=== PATIENT | female | born 1945 ===

== ENCOUNTER 2021-02-25 00:20 | Inpatient (IN) ==
[2021-02-25] MEDS ORDERED: ONDANSETRON 4 MG/2 ML VIAL IV PRN (02:41)
[2021-02-25] MEDS ORDERED: MORPHINE 2 MG/1 ML SYRINGE IV PRN (02:41)
[2021-02-25] MEDS ORDERED: GLUCAGON 1 MG VIAL IM PRN (02:41)
[2021-02-25] MEDS ORDERED: DEXTROSE 50% 25 GM/50 ML VIAL IV PRN (02:41)
[2021-02-25] MEDS ORDERED: ENOXAPARIN 40 MG/0.4 ML SYRINGE SUBCUT SCH (03:00)
[2021-02-25 03:44] LABS: Basophils % 0.2 % (0.0-0.8); Hemoglobin 14.7 GM/DL (12.0-16.0); Immature Granulocytes % 0.5 %; Immature Granulocytes Absolute 0.02 #; Lymphocytes # 0.9 10*3/uL (1.4-4.0); Lymphocytes % 22.2 % (21.3-54.2); Mean Corpuscular HGB Conc 32.7 GM/DL (32-36); Mean Corpuscular Volume 93.8 FL (87-102); Mean Platelet Volume 11.3 FL (9.6-12.0); Monocytes % 15.1 % (1.7-12.7); Platelet Count 169 T/CUMM (130-400); Red Cell Distribution Width 13.5 % (9.3-17.3); White Blood Count 4.2 T/CUMM (4-12)
[2021-02-25 04:11] LABS: Albumin 3.2 G/DL (3.4-5.0); Bilirubin,Total 0.5 MG/DL (0.20-1.00); Calcium 8.6 MG/DL (8.5-10.1); Osmolality,Calculated 293.1 MOS/KG (273-304); Potassium 4.1 MMOL/L (3.5-5.1); Total Protein 6.9 G/DL (6.4-8.2)
[2021-02-25 04:58] LABS: Ferritin 757.4 ng/mL (8-252)
[2021-02-25] MEDS ORDERED: NITROGLYCERIN SL 0.4 MG TABLET SL PRN (08:16)
[2021-02-25] MEDS: DEXAMETHASONE 4 MG/1 ML VIAL IV SCH (08:46)
[2021-02-25] MEDS: ROSUVASTATIN 20 MG TABLET PO SCH (08:46)
[2021-02-25] MEDS: CETIRIZINE 10 MG TABLET PO SCH (08:47)
[2021-02-25] MEDS: ASCORBIC ACID 500 MG TABLET PO SCH ×2 (08:47→21:08)
[2021-02-25] MEDS: CHOLECALCIFEROL 1,000 UNIT TABLET PO SCH (08:47)
[2021-02-25] MEDS: FAMOTIDINE 20 MG TABLET PO SCH ×2 (08:47→21:08)
[2021-02-25] MEDS: METOPROLOL TARTRATE 25 MG TABLET PO SCH ×2 (08:47→21:08)
[2021-02-25] MEDS: ZINC GLUCONATE 50 MG TABLET PO SCH (08:47)
[2021-02-25] MEDS ORDERED: PANTOPRAZOLE 40 MG TABLET PO SCH (09:00)
[2021-02-25 10:25] LABS: CKMB % 1.1 %
[2021-02-25] MEDS: ENOXAPARIN 60 MG/0.6 ML SYRINGE SUBCUT SCH (15:20)
[2021-02-26] MEDS: ENOXAPARIN 60 MG/0.6 ML SYRINGE SUBCUT SCH ×2 (02:49→13:45)
[2021-02-26 04:29] LABS: Hematocrit 44.5 VOL% (35.7-47.0); Hemoglobin 14.7 GM/DL (12.0-16.0); Immature Granulocytes % 0.6 %; Immature Granulocytes Absolute 0.02 #; Lymphocytes # 0.5 10*3/uL (1.4-4.0); Mean Corpuscular Volume 92.5 FL (87-102); Mean Platelet Volume 11.1 FL (9.6-12.0); Monocytes % 19.3 % (1.7-12.7); Neutrophils % 63.1 % (38.7-73.9); Platelet Count 192 T/CUMM (130-400); Red Blood Count 4.81 MC/CUMM (3.8-5.5); Red Cell Distribution Width 13.5 % (9.3-17.3); White Blood Count 3.1 T/CUMM (4-12)
[2021-02-26 04:54] LABS: Calcium 8.6 MG/DL (8.5-10.1); Osmolality,Calculated 312.6 MOS/KG (273-304)
[2021-02-26 04:55] LABS: Band Neutrophils 1 % (0-10); Lymphocytes 13 % (20-55); Platelet Estimate Adequate; Segmented Neutrophils 67 % (50-85); Total Cells Counted 100
[2021-02-26] MEDS: ROSUVASTATIN 20 MG TABLET PO SCH (08:11)
[2021-02-26] MEDS: FAMOTIDINE 20 MG TABLET PO SCH (08:11)
[2021-02-26] MEDS: ASCORBIC ACID 500 MG TABLET PO SCH ×2 (08:12→20:44)
[2021-02-26] MEDS: ZINC GLUCONATE 50 MG TABLET PO SCH (08:12)
[2021-02-26] MEDS: CHOLECALCIFEROL 1,000 UNIT TABLET PO SCH (08:12)
[2021-02-26] MEDS: CETIRIZINE 10 MG TABLET PO SCH (08:12)
[2021-02-26] MEDS: AZITHROMYCIN 250 MG TABLET PO SCH (08:12)
[2021-02-26] MEDS: DEXAMETHASONE 4 MG/1 ML VIAL IV SCH (08:12)
[2021-02-26] MEDS: METOPROLOL TARTRATE 25 MG TABLET PO SCH (09:30)
[2021-02-26] MEDS: SODIUM CHLOR 0.45% KCL 20 MEQ 20 MEQ/1,000 ML BAG IV SCH (14:18)
[2021-02-26] MEDS: FLECAINIDE 100 MG TABLET PO SCH ×2 (15:04→20:44)
[2021-02-26] MEDS ORDERED: OLANZapine 10 MG VIAL IM ONE (19:17)
[2021-02-26] MEDS: MELATONIN 3 MG TABLET PO PRN (20:44)
[2021-02-27] MEDS: SODIUM CHLOR 0.45% KCL 20 MEQ 20 MEQ/1,000 ML BAG IV SCH (02:44)
[2021-02-27 04:40] LABS: Basophils % 0.1 % (0.0-0.8); Hematocrit 44.3 VOL% (35.7-47.0); Hemoglobin 14.5 GM/DL (12.0-16.0); Immature Granulocytes % 0.9 %; Immature Granulocytes Absolute 0.08 #; Lymphocytes # 0.7 10*3/uL (1.4-4.0); Lymphocytes % 7.4 % (21.3-54.2); Mean Corpuscular HGB Conc 32.7 GM/DL (32-36); Mean Corpuscular Volume 93.1 FL (87-102); Mean Platelet Volume 10.9 FL (9.6-12.0); Neutrophils % 78.6 % (38.7-73.9); Platelet Count 265 T/CUMM (130-400); Red Blood Count 4.76 MC/CUMM (3.8-5.5); Red Cell Distribution Width 13.5 % (9.3-17.3); White Blood Count 9.1 T/CUMM (4-12)
[2021-02-27 05:04] LABS: Calcium 8.5 MG/DL (8.5-10.1); Osmolality,Calculated 317.4 MOS/KG (273-304); Potassium 4.6 MMOL/L (3.5-5.1)
[2021-02-27] MEDS: LEVOTHYROXINE 100 MCG TABLET PO SCH (07:30)
[2021-02-27] MEDS: ASCORBIC ACID 500 MG TABLET PO SCH ×2 (09:42→20:58)
[2021-02-27] MEDS: FAMOTIDINE 20 MG TABLET PO SCH (09:42)
[2021-02-27] MEDS: CLOPIDOGREL 75 MG TABLET PO SCH (09:42)
[2021-02-27] MEDS: ROSUVASTATIN 20 MG TABLET PO SCH (09:42)
[2021-02-27] MEDS: FLECAINIDE 100 MG TABLET PO SCH ×2 (09:42→20:58)
[2021-02-27] MEDS: ZINC GLUCONATE 50 MG TABLET PO SCH (09:42)
[2021-02-27] MEDS: DEXAMETHASONE 4 MG/1 ML VIAL IV SCH (09:42)
[2021-02-27] MEDS: CALCIUM (CARBONATE) 500 MG TABLET PO SCH (09:42)
[2021-02-27] MEDS: METOPROLOL SUCCINATE XL 50 MG TABLET PO SCH (09:42)
[2021-02-27] MEDS: CHOLECALCIFEROL 5,000 UNIT TABLET PO SCH (09:42)
[2021-02-27] MEDS: FOLIC ACID 1 MG TABLET PO SCH (09:42)
[2021-02-27] MEDS: AZITHROMYCIN 250 MG TABLET PO SCH (09:42)
[2021-02-27] MEDS: CETIRIZINE 10 MG TABLET PO SCH (09:42)
[2021-02-27] MEDS: ENOXAPARIN 60 MG/0.6 ML SYRINGE SUBCUT SCH (13:01)
[2021-02-27] MEDS: DEXTROSE 5% 1,000 ML IV SCH (14:57)
[2021-02-28] MEDS: DEXTROSE 5% 1,000 ML IV SCH ×2 (04:15→14:27)
[2021-02-28 07:35] LABS: Basophils % 0.1 % (0.0-0.8); Hematocrit 46.9 VOL% (35.7-47.0); Immature Granulocytes % 0.6 %; Immature Granulocytes Absolute 0.05 #; Lymphocytes # 0.5 10*3/uL (1.4-4.0); Lymphocytes % 5.4 % (21.3-54.2); Mean Corpuscular Volume 96.5 FL (87-102); Mean Platelet Volume 10.7 FL (9.6-12.0); Monocytes % 13.8 % (1.7-12.7); Neutrophils % 80.1 % (38.7-73.9); Platelet Count 272 T/CUMM (130-400); Red Blood Count 4.86 MC/CUMM (3.8-5.5); Red Cell Distribution Width 13.5 % (9.3-17.3); White Blood Count 8.5 T/CUMM (4-12)
[2021-02-28 08:13] LABS: Calcium 8.6 MG/DL (8.5-10.1); Osmolality,Calculated 306.1 MOS/KG (273-304); Potassium 4.6 MMOL/L (3.5-5.1)
[2021-02-28] MEDS: LEVOTHYROXINE 100 MCG TABLET PO SCH (08:46)
[2021-02-28] MEDS: ROSUVASTATIN 20 MG TABLET PO SCH (08:47)
[2021-02-28] MEDS: CALCIUM (CARBONATE) 500 MG TABLET PO SCH (08:47)
[2021-02-28] MEDS: CLOPIDOGREL 75 MG TABLET PO SCH (08:47)
[2021-02-28] MEDS: DEXAMETHASONE 4 MG/1 ML VIAL IV SCH (08:47)
[2021-02-28] MEDS: FAMOTIDINE 20 MG TABLET PO SCH (08:47)
[2021-02-28] MEDS: FOLIC ACID 1 MG TABLET PO SCH (08:47)
[2021-02-28] MEDS: METOPROLOL SUCCINATE XL 50 MG TABLET PO SCH (08:48)
[2021-02-28] MEDS: ZINC GLUCONATE 50 MG TABLET PO SCH (08:48)
[2021-02-28] MEDS: FLECAINIDE 100 MG TABLET PO SCH ×2 (08:48→23:17)
[2021-02-28] MEDS: CHOLECALCIFEROL 5,000 UNIT TABLET PO SCH (08:48)
[2021-02-28] MEDS: AZITHROMYCIN 250 MG TABLET PO SCH (08:48)
[2021-02-28] MEDS: CETIRIZINE 10 MG TABLET PO SCH (08:48)
[2021-02-28] MEDS: ASCORBIC ACID 500 MG TABLET PO SCH ×2 (08:48→23:18)
[2021-02-28] MEDS: ENOXAPARIN 60 MG/0.6 ML SYRINGE SUBCUT SCH (14:28)
[2021-02-28] MEDS ORDERED: hydrOXYzine HCL 10 MG TABLET NG PRN (17:48)
[2021-02-28] MEDS ORDERED: LORazepam 2 MG/1 ML VIAL IV ONE (18:01)
[2021-02-28] MEDS ORDERED: LORazepam 2 MG/1 ML VIAL ONE (18:30)
[2021-02-28] MEDS: METOPROLOL TARTRATE 5 MG/5 ML VIAL IV PRN (19:15)
[2021-03-01] MEDS: DEXTROSE 5% 1,000 ML IV SCH ×3 (07:11→21:32)
[2021-03-01] MEDS: DEXAMETHASONE 4 MG/1 ML VIAL IV SCH (08:41)
[2021-03-01] MEDS: LEVOTHYROXINE 100 MCG TABLET PO SCH (10:00)
[2021-03-01] MEDS: ROSUVASTATIN 20 MG TABLET PO SCH (12:05)
[2021-03-01] MEDS: METOPROLOL SUCCINATE XL 50 MG TABLET PO SCH (12:06)
[2021-03-01] MEDS: FOLIC ACID 1 MG TABLET PO SCH (12:06)
[2021-03-01] MEDS: FLECAINIDE 100 MG TABLET PO SCH ×2 (12:06→21:30)
[2021-03-01] MEDS: FAMOTIDINE 20 MG TABLET PO SCH (12:06)
[2021-03-01] MEDS: CALCIUM (CARBONATE) 500 MG TABLET PO SCH (12:06)
[2021-03-01] MEDS: CLOPIDOGREL 75 MG TABLET PO SCH (12:06)
[2021-03-01] MEDS: AZITHROMYCIN 250 MG TABLET PO SCH (12:07)
[2021-03-01] MEDS: CETIRIZINE 10 MG TABLET PO SCH (12:07)
[2021-03-01] MEDS: ASCORBIC ACID 500 MG TABLET PO SCH ×2 (12:07→21:30)
[2021-03-01] MEDS: ZINC GLUCONATE 50 MG TABLET PO SCH (12:07)
[2021-03-01] MEDS: CHOLECALCIFEROL 5,000 UNIT TABLET PO SCH (12:07)
[2021-03-01 13:45] LABS: ABG Base Excess -4.1 MMOL/L (-2.5-2.5); ABG HCO3 20.9 MMOL/L (20-26); ABG Oxygen Saturation 92.5 % (95-100); ABG PCO2 22.4 MM HG (35-48); ABG PH 7.491 (7.35-7.45); ABG PO2 61.2 MM HG (80-95); ABG TCO2 14.4 MMOL/L (23-27)
[2021-03-01 14:34] LABS: Potassium 5.7 MMOL/L (3.5-5.1)
[2021-03-01 14:37] LABS: Osmolality,Calculated 280.1 MOS/KG (273-304)
[2021-03-01 15:53] LABS: Basophils % 0.1 % (0.0-0.8); Hematocrit 47.6 VOL% (35.7-47.0); Hemoglobin 16.1 GM/DL (12.0-16.0); Immature Granulocytes % 0.8 %; Immature Granulocytes Absolute 0.12 #; Lymphocytes # 0.4 10*3/uL (1.4-4.0); Lymphocytes % 2.7 % (21.3-54.2); Mean Corpuscular HGB Conc 33.8 GM/DL (32-36); Mean Corpuscular Volume 90.5 FL (87-102); Mean Platelet Volume 10.6 FL (9.6-12.0); Neutrophils % 86.4 % (38.7-73.9); Platelet Count 309 T/CUMM (130-400); Red Blood Count 5.26 MC/CUMM (3.8-5.5); Red Cell Distribution Width 13.3 % (9.3-17.3); White Blood Count 14.8 T/CUMM (4-12)
[2021-03-01] MEDS: ENOXAPARIN 60 MG/0.6 ML SYRINGE SUBCUT SCH (16:10)
[2021-03-01] MEDS ORDERED: PIPERACILLIN/TAZOBACTAM 3,375 MG in SODIUM CHLORIDE 0.9% 100 ML IV ONE (16:56)
[2021-03-01] MEDS ORDERED: SODIUM ZIRCONIUM CYCLOSILICATE 10 GM PACK PO ONE (16:56)
[2021-03-02 06:11] LABS: Basophils % 0.2 % (0.0-0.8); Hematocrit 43.3 VOL% (35.7-47.0); Immature Granulocytes % 0.6 %; Immature Granulocytes Absolute 0.07 #; Lymphocytes # 0.6 10*3/uL (1.4-4.0); Lymphocytes % 5.1 % (21.3-54.2); Mean Corpuscular HGB Conc 34.6 GM/DL (32-36); Mean Corpuscular Volume 89.5 FL (87-102); Mean Platelet Volume 11.3 FL (9.6-12.0); Monocytes % 16.6 % (1.7-12.7); Neutrophils % 77.5 % (38.7-73.9); Platelet Count 291 T/CUMM (130-400); Red Blood Count 4.84 MC/CUMM (3.8-5.5); Red Cell Distribution Width 13.1 % (9.3-17.3); White Blood Count 11.8 T/CUMM (4-12)
[2021-03-02 06:27] LABS: Calcium 8.7 MG/DL (8.5-10.1); Osmolality,Calculated 293.8 MOS/KG (273-304)
[2021-03-02 06:58] LABS: Band Neutrophils 2 % (0-10); Lymphocytes 4 % (20-55); Platelet Estimate Normal; Segmented Neutrophils 75 % (50-85); Total Cells Counted 100
[2021-03-02 06:59] LABS: Anisocytosis 1+
[2021-03-02] MEDS: DEXAMETHASONE 4 MG/1 ML VIAL IV SCH (11:28)
[2021-03-02] MEDS ORDERED: QUEtiapine 25 MG TABLET PO ONE (11:45)
[2021-03-02] MEDS: METOPROLOL TARTRATE 5 MG/5 ML VIAL IV PRN (11:48)
[2021-03-02] MEDS: FLECAINIDE 100 MG TABLET PO SCH ×2 (13:31→21:30)
[2021-03-02] MEDS: CLOPIDOGREL 75 MG TABLET PO SCH (13:31)
[2021-03-02] MEDS: FAMOTIDINE 20 MG TABLET PO SCH (13:31)
[2021-03-02] MEDS: ZINC GLUCONATE 50 MG TABLET PO SCH (13:31)
[2021-03-02] MEDS: ACETAMINOPHEN 325 MG TABLET PO PRN (13:32)
[2021-03-02] MEDS: ROSUVASTATIN 20 MG TABLET PO SCH (13:33)
[2021-03-02] MEDS: ASCORBIC ACID 500 MG TABLET PO SCH ×2 (13:33→21:30)
[2021-03-02] MEDS: CHOLECALCIFEROL 5,000 UNIT TABLET PO SCH (13:33)
[2021-03-02] MEDS: CALCIUM (CARBONATE) 500 MG TABLET PO SCH (13:33)
[2021-03-02] MEDS: METOPROLOL SUCCINATE XL 50 MG TABLET PO SCH (13:33)
[2021-03-02] MEDS: FOLIC ACID 1 MG TABLET PO SCH (13:33)
[2021-03-02] MEDS: CETIRIZINE 10 MG TABLET PO SCH (13:34)
[2021-03-02] MEDS: LEVOTHYROXINE 100 MCG TABLET PO SCH (13:34)
[2021-03-02] MEDS: ENOXAPARIN 60 MG/0.6 ML SYRINGE SUBCUT SCH (13:42)
[2021-03-02] MEDS: DEXTROSE 5% 1,000 ML IV SCH (21:59)
[2021-03-03 00:20] LABS: ABG Base Excess -4.4 MMOL/L (-2.5-2.5); ABG HCO3 18.7 MMOL/L (20-26); ABG Oxygen Saturation 93.7 % (95-100); ABG PCO2 29.4 MM HG (35-48); ABG PH 7.421 (7.35-7.45); ABG PO2 67.3 MM HG (80-95); ABG TCO2 19.6 MMOL/L (23-27)
[2021-03-03 04:30] LABS: Basophils % 0.2 % (0.0-0.8); Hemoglobin 14.1 GM/DL (12.0-16.0); Immature Granulocytes % 0.8 %; Lymphocytes # 0.5 10*3/uL (1.4-4.0); Lymphocytes % 3.9 % (21.3-54.2); Mean Corpuscular HGB Conc 32.8 GM/DL (32-36); Mean Corpuscular Volume 91.9 FL (87-102); Mean Platelet Volume 10.9 FL (9.6-12.0); Monocytes % 14.2 % (1.7-12.7); Neutrophils % 80.9 % (38.7-73.9); Platelet Count 285 T/CUMM (130-400); Red Blood Count 4.68 MC/CUMM (3.8-5.5); Red Cell Distribution Width 13.3 % (9.3-17.3); White Blood Count 12.8 T/CUMM (4-12)
[2021-03-03 05:04] LABS: Calcium 8.5 MG/DL (8.5-10.1); Osmolality,Calculated 298.7 MOS/KG (273-304); Potassium 3.8 MMOL/L (3.5-5.1)
[2021-03-03 05:08] LABS: Hypochromasia Slight; Lymphocytes 3 % (20-55); Microcytosis 1+; Ovalocytes Slight; Segmented Neutrophils 82 % (50-85)
[2021-03-03 05:09] LABS: Platelet Estimate Normal; Total Cells Counted 100
[2021-03-03 05:56] LABS: ABG Base Excess -2.9 MMOL/L (-2.5-2.5); ABG HCO3 21.9 MMOL/L (20-26); ABG Oxygen Saturation 92.2 % (95-100); ABG PCO2 27.1 MM HG (35-48); ABG PH 7.461 (7.35-7.45); ABG PO2 60.3 MM HG (80-95); ABG TCO2 16.4 MMOL/L (23-27)
[2021-03-03] MEDS: CALCIUM (CARBONATE) 500 MG TABLET PO SCH (08:07)
[2021-03-03] MEDS: ZINC GLUCONATE 50 MG TABLET PO SCH (08:07)
[2021-03-03] MEDS: FLECAINIDE 100 MG TABLET PO SCH ×2 (08:08→20:26)
[2021-03-03] MEDS: CHOLECALCIFEROL 5,000 UNIT TABLET PO SCH (08:08)
[2021-03-03] MEDS: FOLIC ACID 1 MG TABLET PO SCH (08:08)
[2021-03-03] MEDS: ASCORBIC ACID 500 MG TABLET PO SCH ×2 (08:08→20:26)
[2021-03-03] MEDS: METOPROLOL SUCCINATE XL 50 MG TABLET PO SCH (08:08)
[2021-03-03] MEDS: FAMOTIDINE 20 MG TABLET PO SCH (08:08)
[2021-03-03] MEDS: CLOPIDOGREL 75 MG TABLET PO SCH (08:08)
[2021-03-03] MEDS: LEVOTHYROXINE 100 MCG TABLET PO SCH (08:08)
[2021-03-03] MEDS: DEXAMETHASONE 4 MG/1 ML VIAL IV SCH (08:09)
[2021-03-03] MEDS: ROSUVASTATIN 20 MG TABLET PO SCH (08:12)
[2021-03-03] MEDS ORDERED: TUBERCULIN SKIN TEST 0.1 ML SYRINGE INTRADERM ONE (08:20)
[2021-03-03] MEDS: ENOXAPARIN 60 MG/0.6 ML SYRINGE SUBCUT SCH (12:42)
[2021-03-03] MEDS: cefTRIAXone 1,000 MG VIAL IM SCH (14:04)
[2021-03-03] MEDS: SODIUM CHLORIDE 0.9% 1,000 ML IV SCH (14:04)
[2021-03-03] MEDS ORDERED: LORazepam 2 MG/1 ML VIAL IV ONE (14:35)
[2021-03-03] MEDS ORDERED: REMDESIVIR 200 MG in SODIUM CHLORIDE 0.9% 210 ML IV ONE (17:00)
[2021-03-03] MEDS: DEXTROSE 5% 1,000 ML IV SCH (20:28)
[2021-03-04 03:49] LABS: ABG Base Excess -2.1 MMOL/L (-2.5-2.5); ABG HCO3 22.6 MMOL/L (20-26); ABG Oxygen Saturation 97.1 % (95-100); ABG PH 7.475 (7.35-7.45); ABG PO2 84.8 MM HG (80-95); ABG TCO2 16.9 MMOL/L (23-27)
[2021-03-04] MEDS: SODIUM CHLORIDE 0.9% 1,000 ML IV SCH ×2 (04:00→23:24)
[2021-03-04 06:44] LABS: Basophils # 0.1 10*3/uL (0.0-0.2); Basophils % 0.5 % (0.0-0.8); Hematocrit 40.5 VOL% (35.7-47.0); Hemoglobin 13.5 GM/DL (12.0-16.0); Immature Granulocytes % 1.3 %; Immature Granulocytes Absolute 0.19 #; Lymphocytes # 0.6 10*3/uL (1.4-4.0); Lymphocytes % 4.2 % (21.3-54.2); Mean Corpuscular HGB Conc 33.3 GM/DL (32-36); Mean Corpuscular Volume 92.3 FL (87-102); Mean Platelet Volume 11.1 FL (9.6-12.0); Monocytes % 15.6 % (1.7-12.7); Neutrophils % 78.4 % (38.7-73.9); Platelet Count 347 T/CUMM (130-400); Red Blood Count 4.39 MC/CUMM (3.8-5.5); Red Cell Distribution Width 13.2 % (9.3-17.3); White Blood Count 14.6 T/CUMM (4-12)
[2021-03-04 07:11] LABS: Calcium 8.3 MG/DL (8.5-10.1); Osmolality,Calculated 302.4 MOS/KG (273-304); Potassium 3.9 MMOL/L (3.5-5.1)
[2021-03-04 07:49] LABS: Anisocytosis 1+; Band Neutrophils 8 % (0-10); Burr Cells Few; Lymphocytes 6 % (20-55); Metamyelocytes 3 %; Myelocytes 2 %; Ovalocytes Few; Platelet Estimate Normal; Segmented Neutrophils 67 % (50-85); Total Cells Counted 100
[2021-03-04 07:50] LABS: Macrocytosis Slight
[2021-03-04 07:58] LABS: Sedimentation Rate-Westergren 75 MM/HR (0-30)
[2021-03-04] MEDS: FOLIC ACID 1 MG TABLET PO SCH (08:17)
[2021-03-04] MEDS: CHOLECALCIFEROL 5,000 UNIT TABLET PO SCH (08:17)
[2021-03-04] MEDS: CALCIUM (CARBONATE) 500 MG TABLET PO SCH (08:17)
[2021-03-04] MEDS: ZINC GLUCONATE 50 MG TABLET PO SCH (08:17)
[2021-03-04] MEDS: ASCORBIC ACID 500 MG TABLET PO SCH ×2 (08:17→23:25)
[2021-03-04] MEDS: DEXAMETHASONE 4 MG/1 ML VIAL IV SCH (08:18)
[2021-03-04] MEDS: CLOPIDOGREL 75 MG TABLET PO SCH (08:18)
[2021-03-04] MEDS: FAMOTIDINE 20 MG TABLET PO SCH (08:18)
[2021-03-04] MEDS: FLECAINIDE 100 MG TABLET PO SCH ×2 (08:18→23:25)
[2021-03-04] MEDS: METOPROLOL SUCCINATE XL 50 MG TABLET PO SCH (08:18)
[2021-03-04] MEDS: ROSUVASTATIN 20 MG TABLET PO SCH (08:19)
[2021-03-04] MEDS: LEVOTHYROXINE 100 MCG TABLET PO SCH (08:19)
[2021-03-04] MEDS: REMDESIVIR 100 MG in SODIUM CHLORIDE 0.9% 100 ML IV SCH (08:53)
[2021-03-04] MEDS ORDERED: POTASSIUM PHOSPHATE 30 MMOL in SODIUM CHLORIDE 0.9% 250 ML IV ONE (10:00)
[2021-03-04] MEDS: DEXTROSE 5% 1,000 ML IV SCH (11:17)
[2021-03-04] MEDS: cefTRIAXone 1,000 MG VIAL IM SCH (12:32)
[2021-03-04] MEDS: ENOXAPARIN 60 MG/0.6 ML SYRINGE SUBCUT SCH (12:33)
[2021-03-04 15:01] VITALS: BP 149/78
[2021-03-04] MEDS: INSULIN LISPRO 100 UNIT/ML SUBCUT SCH (17:47)
[2021-03-05] MEDS: SODIUM CHLORIDE 0.9% 1,000 ML IV SCH ×3 (01:37→18:34)
[2021-03-05] MEDS: INSULIN LISPRO 100 UNIT/ML SUBCUT SCH ×4 (02:04→18:32)
[2021-03-05 05:38] LABS: Albumin 1.7 G/DL (3.4-5.0); Bilirubin,Total 0.5 MG/DL (0.20-1.00); Calcium 8.5 MG/DL (8.5-10.1); Osmolality,Calculated 288.3 MOS/KG (273-304); Potassium 4.5 MMOL/L (3.5-5.1)
[2021-03-05] MEDS: LEVOTHYROXINE 100 MCG TABLET PO SCH (07:34)
[2021-03-05] MEDS: ROSUVASTATIN 20 MG TABLET PO SCH (08:15)
[2021-03-05] MEDS: DEXAMETHASONE 4 MG/1 ML VIAL IV SCH (08:16)
[2021-03-05] MEDS: CLOPIDOGREL 75 MG TABLET PO SCH (08:16)
[2021-03-05] MEDS: CALCIUM (CARBONATE) 500 MG TABLET PO SCH (08:16)
[2021-03-05] MEDS: FAMOTIDINE 20 MG TABLET PO SCH (08:16)
[2021-03-05] MEDS: FOLIC ACID 1 MG TABLET PO SCH (08:16)
[2021-03-05] MEDS: FLECAINIDE 100 MG TABLET PO SCH ×2 (08:16→20:10)
[2021-03-05] MEDS: CHOLECALCIFEROL 5,000 UNIT TABLET PO SCH (08:17)
[2021-03-05] MEDS: ZINC GLUCONATE 50 MG TABLET PO SCH (08:17)
[2021-03-05] MEDS: ASCORBIC ACID 500 MG TABLET PO SCH ×2 (08:17→20:10)
[2021-03-05] MEDS: METOPROLOL SUCCINATE XL 50 MG TABLET PO SCH (08:17)
[2021-03-05] MEDS: REMDESIVIR 100 MG in SODIUM CHLORIDE 0.9% 100 ML IV SCH (08:43)
[2021-03-05] MEDS ORDERED: LORazepam 2 MG/1 ML VIAL ONE (08:55)
[2021-03-05] MEDS: LORazepam 2 MG/1 ML VIAL IV PRN (09:30)
[2021-03-05] MEDS: DEXTROSE 5% 1,000 ML IV SCH (11:24)
[2021-03-05] MEDS: ENOXAPARIN 60 MG/0.6 ML SYRINGE SUBCUT SCH (12:20)
[2021-03-05] MEDS: cefTRIAXone 1,000 MG VIAL IM SCH (12:20)
[2021-03-05] MEDS: OLANZapine 5 MG TABLET PO SCH (20:10)
[2021-03-06 04:49] LABS: ABG Base Excess 1.2 MMOL/L (-2.5-2.5); ABG HCO3 25.5 MMOL/L (20-26); ABG Oxygen Saturation 97.8 % (95-100); ABG PH 7.463 (7.35-7.45); ABG PO2 95.3 MM HG (80-95); ABG TCO2 21.1 MMOL/L (23-27)
[2021-03-06] MEDS: INSULIN LISPRO 100 UNIT/ML SUBCUT SCH ×4 (06:12→17:37)
[2021-03-06 06:46] LABS: Basophils # 0.1 10*3/uL (0.0-0.2); Basophils % 0.5 % (0.0-0.8); Hematocrit 39.6 VOL% (35.7-47.0); Hemoglobin 13.5 GM/DL (12.0-16.0); Immature Granulocytes % 1.7 %; Immature Granulocytes Absolute 0.38 #; Lymphocytes # 1.1 10*3/uL (1.4-4.0); Lymphocytes % 4.6 % (21.3-54.2); Mean Corpuscular HGB Conc 34.1 GM/DL (32-36); Mean Corpuscular Volume 92.1 FL (87-102); Mean Platelet Volume 10.7 FL (9.6-12.0); Monocytes % 14.3 % (1.7-12.7); Neutrophils % 78.9 % (38.7-73.9); Platelet Count 357 T/CUMM (130-400); Red Cell Distribution Width 13.2 % (9.3-17.3); White Blood Count 22.8 T/CUMM (4-12)
[2021-03-06 07:08] LABS: Band Neutrophils 1 % (0-10); Lymphocytes 3 % (20-55); Segmented Neutrophils 81 % (50-85); Total Cells Counted 100
[2021-03-06 07:09] LABS: Microcytosis 1+
[2021-03-06 07:24] LABS: Calcium 8.3 MG/DL (8.5-10.1); Osmolality,Calculated 281.8 MOS/KG (273-304); Potassium 4.4 MMOL/L (3.5-5.1)
[2021-03-06] MEDS: LEVOTHYROXINE 100 MCG TABLET PO SCH (08:42)
[2021-03-06] MEDS: SODIUM CHLORIDE 0.9% 1,000 ML IV SCH ×2 (08:43→22:13)
[2021-03-06] MEDS: CALCIUM (CARBONATE) 500 MG TABLET PO SCH (08:43)
[2021-03-06] MEDS: FOLIC ACID 1 MG TABLET PO SCH (08:43)
[2021-03-06] MEDS: FAMOTIDINE 20 MG TABLET PO SCH (08:43)
[2021-03-06] MEDS: ROSUVASTATIN 20 MG TABLET PO SCH (08:43)
[2021-03-06] MEDS: DEXAMETHASONE 4 MG/1 ML VIAL IV SCH (08:43)
[2021-03-06] MEDS: ASCORBIC ACID 500 MG TABLET PO SCH ×2 (08:44→20:46)
[2021-03-06] MEDS: ZINC GLUCONATE 50 MG TABLET PO SCH (08:44)
[2021-03-06] MEDS: CHOLECALCIFEROL 5,000 UNIT TABLET PO SCH (08:44)
[2021-03-06] MEDS: METOPROLOL SUCCINATE XL 50 MG TABLET PO SCH (08:44)
[2021-03-06] MEDS: CLOPIDOGREL 75 MG TABLET PO SCH (08:44)
[2021-03-06] MEDS: FLECAINIDE 100 MG TABLET PO SCH ×2 (08:44→20:46)
[2021-03-06] MEDS: OLANZapine 5 MG TABLET PO SCH ×2 (08:45→20:46)
[2021-03-06] MEDS: REMDESIVIR 100 MG in SODIUM CHLORIDE 0.9% 100 ML IV SCH (09:59)
[2021-03-06] MEDS: cefTRIAXone 1,000 MG VIAL IM SCH (14:08)
[2021-03-06] MEDS: ENOXAPARIN 60 MG/0.6 ML SYRINGE SUBCUT SCH (14:08)
[2021-03-06] MEDS: DEXTROSE 5% 1,000 ML IV SCH (14:09)
[2021-03-07] MEDS: INSULIN LISPRO 100 UNIT/ML SUBCUT SCH ×4 (00:13→18:10)
[2021-03-07 04:50] LABS: ABG Base Excess 2.8 MMOL/L (-2.5-2.5); ABG HCO3 25.8 MMOL/L (20-26); ABG Oxygen Saturation 91.6 % (95-100); ABG PCO2 34.2 MM HG (35-48); ABG PH 7.495 (7.35-7.45); ABG PO2 57.6 MM HG (80-95); ABG TCO2 26.8 MMOL/L (23-27)
[2021-03-07 05:24] LABS: Basophils # 0.1 10*3/uL (0.0-0.2); Basophils % 0.3 % (0.0-0.8); Hematocrit 38.4 VOL% (35.7-47.0); Hemoglobin 12.9 GM/DL (12.0-16.0); Immature Granulocytes % 1.7 %; Immature Granulocytes Absolute 0.37 #; Lymphocytes # 0.9 10*3/uL (1.4-4.0); Lymphocytes % 4.2 % (21.3-54.2); Mean Corpuscular HGB Conc 33.6 GM/DL (32-36); Mean Corpuscular Volume 91.2 FL (87-102); Mean Platelet Volume 10.9 FL (9.6-12.0); Monocytes % 14.7 % (1.7-12.7); Neutrophils % 79.1 % (38.7-73.9); Platelet Count 289 T/CUMM (130-400); Red Blood Count 4.21 MC/CUMM (3.8-5.5); Red Cell Distribution Width 13.1 % (9.3-17.3); White Blood Count 21.6 T/CUMM (4-12)
[2021-03-07 05:54] LABS: Lymphocytes 7 % (20-55); Platelet Estimate Normal; Segmented Neutrophils 81 % (50-85); Total Cells Counted 100
[2021-03-07] MEDS: ROSUVASTATIN 20 MG TABLET PO SCH (08:56)
[2021-03-07] MEDS: FLECAINIDE 100 MG TABLET PO SCH ×2 (08:56→21:44)
[2021-03-07] MEDS: CLOPIDOGREL 75 MG TABLET PO SCH (08:56)
[2021-03-07] MEDS: FOLIC ACID 1 MG TABLET PO SCH (08:56)
[2021-03-07] MEDS: CALCIUM (CARBONATE) 500 MG TABLET PO SCH (08:56)
[2021-03-07] MEDS: FAMOTIDINE 20 MG TABLET PO SCH (08:56)
[2021-03-07] MEDS: LEVOTHYROXINE 100 MCG TABLET PO SCH (08:56)
[2021-03-07] MEDS: ASCORBIC ACID 500 MG TABLET PO SCH ×2 (08:57→21:44)
[2021-03-07] MEDS: OLANZapine 5 MG TABLET PO SCH ×2 (08:57→21:44)
[2021-03-07] MEDS: CHOLECALCIFEROL 5,000 UNIT TABLET PO SCH (08:57)
[2021-03-07] MEDS: METOPROLOL SUCCINATE XL 50 MG TABLET PO SCH (08:57)
[2021-03-07] MEDS: ZINC GLUCONATE 50 MG TABLET PO SCH (08:57)
[2021-03-07] MEDS: DEXTROSE 5% 1,000 ML IV SCH (12:46)
[2021-03-07] MEDS: SODIUM CHLORIDE 0.9% 1,000 ML IV SCH (12:46)
[2021-03-07] MEDS: cefTRIAXone 1,000 MG VIAL IM SCH (13:30)
[2021-03-07] MEDS: ENOXAPARIN 60 MG/0.6 ML SYRINGE SUBCUT SCH (13:30)
[2021-03-07] MEDS: ACETAMINOPHEN 325 MG TABLET PO PRN (18:11)
[2021-03-07] MEDS: MELATONIN 3 MG TABLET PO PRN (21:44)
[2021-03-08] MEDS: SODIUM CHLORIDE 0.9% 1,000 ML IV SCH (00:39)
[2021-03-08] MEDS: LORazepam 2 MG/1 ML VIAL IV PRN ×4 (00:41→23:20)
[2021-03-08] MEDS: INSULIN LISPRO 100 UNIT/ML SUBCUT SCH ×4 (00:50→18:48)
[2021-03-08 04:27] LABS: ABG Base Excess 2.8 MMOL/L (-2.5-2.5); ABG HCO3 26.7 MMOL/L (20-26); ABG Oxygen Saturation 86.3 % (95-100); ABG PCO2 30.7 MM HG (35-48); ABG PH 7.519 (7.35-7.45); ABG PO2 48.8 MM HG (80-95); ABG TCO2 22.2 MMOL/L (23-27)
[2021-03-08 05:58] LABS: Basophils # 0.1 10*3/uL (0.0-0.2); Basophils % 0.3 % (0.0-0.8); Eosinophils # 0.1 10*3/uL (0.0-0.87); Eosinophils % 0.2 % (0.00-10.9); Hematocrit 36.1 VOL% (35.7-47.0); Hemoglobin 11.9 GM/DL (12.0-16.0); Immature Granulocytes Absolute 0.53 #; Lymphocytes # 1.2 10*3/uL (1.4-4.0); Lymphocytes % 4.5 % (21.3-54.2); Mean Corpuscular Volume 92.1 FL (87-102); Monocytes % 11.5 % (1.7-12.7); Neutrophils % 81.5 % (38.7-73.9); Platelet Count 254 T/CUMM (130-400); Red Blood Count 3.92 MC/CUMM (3.8-5.5); Red Cell Distribution Width 13.1 % (9.3-17.3); White Blood Count 26.1 T/CUMM (4-12)
[2021-03-08 06:14] LABS: Albumin 1.3 G/DL (3.4-5.0); Bilirubin,Total 0.5 MG/DL (0.20-1.00); Calcium 7.8 MG/DL (8.5-10.1); Osmolality,Calculated 279.8 MOS/KG (273-304); Potassium 4.4 MMOL/L (3.5-5.1); Total Protein 5.1 G/DL (6.4-8.2)
[2021-03-08 06:37] LABS: Band Neutrophils 1 % (0-10); Lymphocytes 2 % (20-55); Microcytosis 1+; Segmented Neutrophils 84 % (50-85); Total Cells Counted 100
[2021-03-08 06:38] LABS: Ovalocytes Slight
[2021-03-08 06:39] LABS: Platelet Estimate Normal
[2021-03-08] MEDS: CALCIUM (CARBONATE) 500 MG TABLET PO SCH (08:40)
[2021-03-08] MEDS: CLOPIDOGREL 75 MG TABLET PO SCH (08:40)
[2021-03-08] MEDS: ROSUVASTATIN 20 MG TABLET PO SCH (08:40)
[2021-03-08] MEDS: ZINC GLUCONATE 50 MG TABLET PO SCH (08:40)
[2021-03-08] MEDS: FOLIC ACID 1 MG TABLET PO SCH (08:40)
[2021-03-08] MEDS: CHOLECALCIFEROL 5,000 UNIT TABLET PO SCH (08:40)
[2021-03-08] MEDS: FLECAINIDE 100 MG TABLET PO SCH ×2 (08:40→21:49)
[2021-03-08] MEDS: FAMOTIDINE 20 MG TABLET PO SCH (08:40)
[2021-03-08] MEDS: ASCORBIC ACID 500 MG TABLET PO SCH ×2 (08:40→22:02)
[2021-03-08] MEDS: OLANZapine 5 MG TABLET PO SCH (08:40)
[2021-03-08] MEDS: LEVOTHYROXINE 100 MCG TABLET PO SCH (08:41)
[2021-03-08] MEDS: METOPROLOL SUCCINATE XL 50 MG TABLET PO SCH (08:41)
[2021-03-08] MEDS ORDERED: LORazepam 2 MG/1 ML VIAL ONE (11:58)
[2021-03-08] MEDS: ENOXAPARIN 60 MG/0.6 ML SYRINGE SUBCUT SCH (12:06)
[2021-03-08] MEDS: cefTRIAXone 1,000 MG VIAL IM SCH (12:07)
[2021-03-08] MEDS ORDERED: FUROSEMIDE 20 MG/2 ML VIAL IV ONE (12:42)
[2021-03-08] MEDS: methylPREDNISolone SOD SUC 40 MG/1 ML VIAL IV SCH ×2 (14:09→22:02)
[2021-03-08] MEDS: MORPHINE 2 MG/1 ML SYRINGE IV PRN ×3 (21:54→23:22)
[2021-03-09] MEDS: MORPHINE 2 MG/1 ML SYRINGE IV PRN ×9 (00:20→22:50)
[2021-03-09] MEDS: INSULIN LISPRO 100 UNIT/ML SUBCUT SCH ×4 (01:23→17:38)
[2021-03-09] MEDS: LORazepam 2 MG/1 ML VIAL IV PRN ×2 (01:31→22:47)
[2021-03-09] MEDS: methylPREDNISolone SOD SUC 40 MG/1 ML VIAL IV SCH (07:06)
[2021-03-09] MEDS: FLECAINIDE 100 MG TABLET PO SCH ×2 (08:33→22:58)
[2021-03-09] MEDS: METOPROLOL TARTRATE 25 MG TABLET PO SCH ×2 (08:33→22:58)
[2021-03-09] MEDS: ROSUVASTATIN 20 MG TABLET PO SCH (08:33)
[2021-03-09] MEDS: FAMOTIDINE 20 MG TABLET PO SCH (08:33)
[2021-03-09] MEDS: LEVOTHYROXINE 100 MCG TABLET PO SCH (08:33)
[2021-03-09] MEDS: ZINC GLUCONATE 50 MG TABLET PO SCH (08:33)
[2021-03-09] MEDS: CHOLECALCIFEROL 5,000 UNIT TABLET PO SCH (08:33)
[2021-03-09] MEDS: ASCORBIC ACID 500 MG TABLET PO SCH ×2 (08:33→22:58)
[2021-03-09] MEDS: CALCIUM (CARBONATE) 500 MG TABLET PO SCH (08:33)
[2021-03-09] MEDS: FOLIC ACID 1 MG TABLET PO SCH (08:34)
[2021-03-09] MEDS: CLOPIDOGREL 75 MG TABLET PO SCH (08:34)
[2021-03-09] MEDS ORDERED: methylPREDNISolone SOD SUC 40 MG/1 ML VIAL IV SCH (12:30)
[2021-03-09] MEDS: ENOXAPARIN 60 MG/0.6 ML SYRINGE SUBCUT SCH (13:14)
[2021-03-09] MEDS: cefTRIAXone 1,000 MG VIAL IM SCH (13:15)
[2021-03-10] MEDS: INSULIN LISPRO 100 UNIT/ML SUBCUT SCH ×2 (00:19→06:17)
[2021-03-10] MEDS ORDERED: methylPREDNISolone SOD SUC 40 MG/1 ML VIAL IV SCH (01:00)
[2021-03-10] MEDS: MORPHINE 2 MG/1 ML SYRINGE IV PRN ×4 (02:13→16:10)
[2021-03-10] MEDS: LEVOTHYROXINE 100 MCG TABLET PO SCH (06:59)
== END 2021-03-10 17:13 | disposition expired | DRG 177 ==
LOC: INTOOBSV 02:24 → N.2E 02:24 → SUATTDRO 02:24 → N.CC 03-02 20:19
PROVIDERS: ADMIT Internal Medicine; ATTEND Family Medicine